=== PATIENT | male | born 1965 | race Caucasian/White ===

== ENCOUNTER 2016-12-01 19:37 | Emergency (ER) | payer BC ==
[2016-12-01] MEDS ORDERED: SULFAMETHOXAZOLE/TRIMETHOPRIM 1 TAB TABLET PO ONE (21:30)
[2016-12-01] MEDS ORDERED: SULFAMETHOXAZOLE/TRIMETHOPRIM 1 TAB TABLET ONE (21:41)
--- NOTE | 2016-12-01 21:48 | ERNOTE ---
Integumentary HPI - Narrative Date of Service: 12/01/16 - General Presenting Symptoms: rash Time Seen by Provider: 12/01/16 21:28 Source: patient Exam Limitations: no limitations - Immun/Allergies/Home Medications Immunizations: IMMUNIZATION HX Immunizations Up to Date Yes History of Influenza Vaccine Yes Allergies/Adverse Reactions: Allergies Allergy/AdvReac Type Severity Reaction Status Date / Time shellfish derived AdvReac Verified 01/31/16 13:53 Home Medications: HOME MEDICATIONS Famotidine [Pepcid] 40 mg PO HS 01/31/16 [Last Taken Unknown] Ibuprofen [Motrin] 600 mg PO Q6H PRN #40 tab 01/31/16 [Last Taken Unknown] Sulfamethoxazole/Trimethoprim [Bactrim Ds] 1 tab PO BID #28 tab 12/01/16 [Last Taken Unknown] - Pain Pain Score: 6 - History of Present Illness Narrative: 51-year-old male presenting to the emergency room for left hip pain/cellulites. Patient states that he gets this on and off. hes seeing Dr. Payton for it this is how it usually starts. Date (Duration): 12/01/16 Location: Reports: perirectal Quality: Reports: painful Severity: mild Exposure: Reports: no cause identified Modifying Factors - (Improves): Reports: nothing Modifying Factors - (Worsens): Reports: nothing Associated Symptoms: Reports: fever, flushing Prior Treatment: Reports: other - has a history of this problem. Review of Systems - Review of Systems Constitutional: Present: See HPI, fever, chills EYE: Present: no symptoms reported ENT: Present: no symptoms reported Respiratory: Present: no symptoms reported Cardiology: Present: no symptoms reported Gastrointestinal/Abdominal: Present: no symptoms reported Genitourinary: Present: no symptoms reported Musculoskeletal: Present: no symptoms reported Skin: Present: See HPI, rash Neurological: Present: no symptoms reported Endocrine: Present: no symptoms reported Hematologic/Lymphatic: Present: no symptoms reported Psych: Present: no symptoms reported - Patient's Past Medical History Patient History - Medical: GERD, Obesity, Other - cellulitis Patient History - Cardiac/Respiratory: No pertinent hx Patient History - Cancer: No Hx of Cancer Patient History - Surgical Procedures: Back Surgery Patient History - Other: None - Social History Living Situations: spouse Psych History: No pertinent hx Does anyone smoke in the home?: No Smoking Status: Never smoker Do you dip or chew tobacco: No Alcohol Use: occasionally Drug Use: none - Immunizations Immunizations Up to Date: Yes History of Influenza Vaccine: Yes Physical Exam - Physical Exam Narrative: patient has a red raised rash across the back of his left buttock. rash is painful and erythematous General Appearance: Present: wd/wn, alert Eye Exam: Normal inspection: bilateral Ears, Nose, Throat: Present: normal ENT inspection Neck: Present: normal inspection, nontender Respiratory: Present: no respiratory distress, normal breath sounds, lungs clear Cardiovascular/Chest: Present: regular rate, rhythm, no murmur Gastrointestinal/Abdominal: Present: normal bowel sounds, soft Back Exam: Present: normal inspection, normal range of motion Extremity Exam: Present: normal inspection, normal range of motion Neurological Exam: Present: alert, oriented, normal mood/affect, no motor/ sensory deficits Skin Exam: Present: warm/dry, skin rash Lymphatic Exam: Present: no adenopathy ED Progress - Vital Signs Vital Signs: Vital Signs 12/01/16 20:00 Temperature 37.1 C Pulse Rate 90 Respiratory 16 Rate Blood Pressure 140/74 O2 Sat by Pulse 96 Oximetry - Progress/Reassessment Chief Complaint: Cellulitis Progress:: Improved Plan - Plan Plan: Patient has an appointment tomorrow with Dr. Payton. Departure Clinical Impression: Cellulitis of buttock, left - Departure Disposition: Home Follow Up Needed Condition: Stable Instructions: Cellulitis, Adult, [id number] Additional Instructions: Continue any previous home medications. Follow-up with Dr. Payton tomorrow morning. Return to emergency room's a fever or symptoms persist. Continue to take [id number] pain medications as needed for pain and fever. Referrals: Terry Hernandez DO [Primary Care Provider] - Prescriptions: Sulfamethoxazole/Trimethoprim [Bactrim Ds] 1 tab PO BID #28 tab
[2016-12-01 21:55] VITALS: BP 134/67
== END 2016-12-01 21:54 | disposition home or self-care (01) ==
LOC: ER 19:37
DX: L03.317 Cellulitis of buttock (principal); K21.9 Gastro-esophageal reflux disease without esophagitis